=== PATIENT | female | born 1955 | race Hispanic/Latino ===

== ENCOUNTER 2018-09-26 18:06 | Emergency (ER) | payer OTHER | END 2018-09-26 20:24 | disposition home or self-care (01) | LOC: EDH 18:06 | DX: R60.0 Localized edema (principal); I10 Essential (primary) hypertension; E78.5 Hyperlipidemia, unspecified; E07.9 Disorder of thyroid, unspecified; Z90.710 Acquired absence of both cervix and uterus | CPT/HCPCS: 93971 ==

== ENCOUNTER → 2018-09-26 | Outpatient (CLI) | payer MEDICARE, OTHER ==
[~2018-09-26] MED LIST: IOHEXOL-350 75 ML VIAL IV ONE
== END | disposition home or self-care (01) ==
LOC: RAH 07:41
PROVIDERS: ATTEND Surgery
DX: K42.9 Umbilical hernia without obstruction or gangrene (principal); K43.2 Incisional hernia without obstruction or gangrene; K40.90 Unilateral inguinal hernia, without obstruction or gangrene, not specified as recurrent; M47.817 Spondylosis without myelopathy or radiculopathy, lumbosacral region; Z90.710 Acquired absence of both cervix and uterus
CPT/HCPCS: 74177; Q9967 ×2

== ENCOUNTER → 2022-05-18 | Outpatient (CLI) | payer OTHER, MEDICARE ==
[2022-05-18 16:44] LABS: ALBUMIN 3.7 g/dL (3.5-5.0); POTASSIUM 4.1 mmol/L (3.5-5.1); TOTAL PROTEIN, SERUM 7.9 g/dL (6.0-8.3)
== END | disposition home or self-care (01) ==
LOC: LAB 08:15
PROVIDERS: ATTEND Internal Medicine Cardiovascular Disease
DX: R01.1 Cardiac murmur, unspecified (principal)
CPT/HCPCS: 36415; 80053

== ENCOUNTER → 2022-05-26 | Outpatient (CLI) | payer OTHER, MEDICARE ==
[~2022-05-26] MED LIST changes: +IOHEXOL 350 MG/ML 100ML INFUS..BTL IV ONE; -IOHEXOL-350 75 ML VIAL IV ONE
== END | disposition home or self-care (01) ==
LOC: RAH 11:23
PROVIDERS: ATTEND Internal Medicine Cardiovascular Disease
DX: Q25.3 Supravalvular aortic stenosis (principal); I35.0 Nonrheumatic aortic (valve) stenosis
CPT/HCPCS: 71275; Q9967

== ENCOUNTER → 2022-12-31 | Outpatient (CLI) | payer OTHER, MEDICARE | END | disposition home or self-care (01) | LOC: SHCH 13:27 | PROVIDERS: ATTEND Internal Medicine Cardiovascular Disease | DX: I87.2 Venous insufficiency (chronic) (peripheral) (principal) | CPT/HCPCS: 93970 ==

== ENCOUNTER → 2024-02-14 | Outpatient (CLI) | payer MEDICARE | END | disposition home or self-care (01) | LOC: SHCH 12:37 | PROVIDERS: ATTEND Internal Medicine Cardiovascular Disease | DX: I08.0 Rheumatic disorders of both mitral and aortic valves (principal); R01.1 Cardiac murmur, unspecified | CPT/HCPCS: 93306 ==

== ENCOUNTER 2024-06-02 18:05 | Emergency (ER) | payer MEDICARE ==
[~2024-06-02] VITALS: Ht 154.9 cm; Wt 79.4 kg
[2024-06-02] MEDS ORDERED: ACET-2079 PO (18:54)
--- NOTE | 2024-06-02 18:57 | ERN ---
ED Note History of Present Illness Stated Complaint: LEFT HIP PAIN Chief Complaint: Hip Pain/Injury Time Seen by MD: 18:33 Dictation: PATIENT IS A 69-YEAR-OLD FEMALE HERE WITH LEFT LATERAL LUMBOSACRAL TENDERNESS AND PAIN RADIATING DOWN THE POSTERIOR LEFT LEG ONSET TWO DAYS PRIOR TO ARRIVAL. NO FEVER NO CHILLS NO NAUSEA VOMITING NO CHANGE IN URINATION. PATIENT'S DAUGHTER STATES THEY WERE SEEN AT [facility] YESTERDAY AND HAD PLAIN FILM X-RAYS DONE, HOWEVER THE X-RAYS WERE INCONCLUSIVE AND THEY WERE TOLD TO GET AN MRI. THEY CAME TODAY TO [facility] HOPING TO HAVE AN MRI IN THE EMERGENCY ROOM. Allergies: Coded Allergies: No Known Drug Allergies (Unverified Allergy, Unknown, 09/26/18) Home Meds Active Scripts Acetaminophen with Codeine (Acetaminophen-Cod #3 Tablet) 300 Mg-30 Mg Tablet, 1 TAB PO Q4H PRN for MODERATE TO SEVERE, #12 TAB 0 Refills Prov:MARILIN WATTERS ENGLISH COMPOSITION TEACHER 06/02/24 Past Medical History Past Medical History: Hypertension Additional Past Medical Hx: THYROID PROBLEM Surgical History: None History: Not Applicable RN Note Reviewed/Agreed w/PFSH: Yes Review of System Dictation CONSTITUTIONAL: NEGATIVE EXCEPT FOR HPI HEAD/FACE: NEGATIVE EXCEPT FOR HPI EENT: NEGATIVE EXCEPT FOR HPI RESPIRATORY: NEGATIVE EXCEPT FOR HPI GASTROINTESTINAL/ABDOMINAL: NEGATIVE EXCEPT FOR HPI GENITOURINARY: NEGATIVE EXCEPT FOR HPI MUSCULOSKELETAL: NEGATIVE EXCEPT FOR HPI LEFT LATERAL LUMBOSACRAL TENDERNESS INTEGUMENTARY: NEGATIVE EXCEPT FOR HPI NEUROLOGICAL/PSYCH: NEGATIVE EXCEPT FOR HPI SCIATICA LEFT LEG HEMATOLOGIC/LYMPHATIC: NEGATIVE EXCEPT FOR HPI ALL SYSTEMS NEGATIVE, EXCEPT NOTED ABOVE. 13 POINT REVIEW OF SYSTEMS ASSESSED AND ALL NEGATIVE EXCEPT FOR ABOVE. Initial Vital Sign VS Vital Signs Date Time Temp Pulse Resp B/P (MAP) Pulse Ox O2 Delivery O2 Flow Rate FiO2 06/02/24 18:25 97.9 77 16 153/74 97 Room Air 06/02/24 21:37 0 21 Physical Exam Dictation VITAL SIGNS REVIEWED GENERAL APPEARANCE: ALERT, ORIENTED X 3, MODERATE ACUTE DISTRESS, WELL DEVELOPED, NOURISHED. HEAD AND FACE: NON-TRAUMATIC. EYES: PERRL, PINK CONJUNCTIVAS, EYELID NO TRAUMA, ANTERIOR CHAMBER WITH ARCUS SENILIS. EARS: PINNAS INTACT AND NO SIGNS OF TRAUMA OR ERYTHEMA EAR CANALS CLEAR AND NO DISCHARGE TM NO ERYTHEMA NOSE: NO DISCHARGE, NO BLEEDING. OROPHARYNX: MOUTH NORMAL, TONGUE PINK, PHARYNX CLEAR,NO ERYTHEMA, TONSILS NO EXUDATES, NO ABSCESSES NOTED, MUCOUS MEMBRANE MOIST NECK: SUPPLE, NON-TENDER, NO THYROMEGALY, NO MASSES, NO JVD, NO BRUITS BREAST:DEFERRED CHEST:NO TENDERNESS, NO CREPITUS, NO PARADOXICAL MOVEMENT, NO RETRACTIONS LUNGS:CLEAR, WELL-VENTILATED, SYMMETRIC, NO RALES, NO WHEEZING, NO RHONCHI, NO STRIDOR, GOOD BREATH SOUNDS BILATERALLY HEART: REGULAR RATE, REGULAR RHYTHM, NO MURMUR, NO GALLOPS VASCULAR: NO PERIPHERAL EDEMA, ABDOMEN: SOFT, POSITIVE BOWEL SOUNDS, NONDISTENDED, NO GUARDING, NONTENDER, NO REBOUND, NO MASSES NO HEPATOMEGALY, NO SPLENOMEGALY, NO PINEDO'S SIGN, NO HERNIAS. RECTAL: DEFERRED GENITAL: DEFERRED NEUROLOGICAL: NORMAL SPEECH, MOTOR FUNCTION INTACT, SENSORY FUNCTION INTACT MUSCULOSKELETAL: NECK NONTENDER, FULL RANGE OF MOTION, LEFT LATERAL LUMBOSACRAL TENDERNESS WITH PALPATION, FULL RANGE OF MOTION, POSITIVE STRAIGHT LEG RAISE LEFT LEG 10 DEGREE EXTREMITIES: NONTENDER, FULL RANGE OF MOTION SKIN: COLOR PINK, DRY, NO TURGOR, NO RASH, NO LACERATIONS, NO ABRASIONS, NO CONTUSIONS. LYMPHATIC: DEFERRED Results (Laboratory/Radiology) Labs Reviewed?: Yes ED Course ED Course Orders Procedure Category Date Status Time Acetaminophen With PHA 06/02/24 Complete Codeine (Tylenol-Code 19:00 Dexamethasone 4mg/Ml PHA 06/02/24 Complete 1ml Vial (Dexametha 19:00 Ketorolac PHA 06/02/24 Complete Tromethamine 30mg/Ml 19:00 Current Medications Medications (Trade) Dose Ordered Sig/Juvenal Route PRN Reason Start Time Stop Time Status Last Admin Dose Admin Acetaminophen/ Codeine Phosphate (TYLenol-coDEINE TAB) 1 tab ONCE ONCE PO 06/02/24 19:00 06/02/24 19:01 DC 06/02/24 21:28 Dexamethasone Sodium Phosphate (dexaMETHasone 4MG/ML 1ML VIAL) 4 mg ONCE ONCE IM 06/02/24 19:00 06/02/24 19:01 DC 06/02/24 21:28 Ketorolac Tromethamine (toRADol) 30 mg ONCE ONCE IVP 06/02/24 19:00 06/02/24 19:01 DC 06/02/24 21:28 Vital Signs Date Time Temp Pulse Resp B/P (MAP) Pulse Ox O2 Delivery O2 Flow Rate FiO2 06/02/24 21:37 98.1 75 16 150/70 98 Room Air* 0 21 06/02/24 18:25 97.9 77 16 153/74 97 Room Air EIGHTEEN 50 PATIENT AND DAUGHTER MADE AWARE THAT I AM UNABLE TO PERFORM AN MRI IN THE EMERGENCY ROOM. THEY HE HAD BEEN PRESCRIBED IBUPROFEN 800 BY [facility] I ASSURED THEM I COULD GIVE BETTER PAIN RELIEF HOWEVER THEY WOULD NEED TO SEE THEIR PRIMARY CARE DOCTOR TOMORROW FOR MRI Medical Decision Making MDM MEDICAL DISCHARGE MAKING BASED ON EMPIRIC TREATMENT FOR LEFT LUMBOSACRAL PAIN WITH SCIATICA PATIENT AND DAUGHTER MADE AWARE THAT THEY NEED TO SEE PATIENT'S PRIMARY CARE DOCTOR TOMORROW FOR RECOMMENDED MRI MDM: Differential diagnosis: Back pain, sciatica Risk of complication and/or morbidity or mortality of patient management: None Medications-Per medication reconciliation Need for hospitalization: Patient does not meet criteria for hospitalization. Need for emergency major/minor surgery: No There are no social concerns with this patient. Prescription drug management Prescriptions will include symptomatic care I independently interpreted the test that were performed, results were reviewed by me and considered findings on radiology if ordered. DX & DISP Disposition: Discharge Departure Impression: Primary Impression: Acute low back pain with left-sided sciatica Condition: Stable Scripts Acetaminophen with Codeine (Acetaminophen-Cod #3 Tablet) 300 Mg-30 Mg Tablet 1 TAB PO Q4H PRN for MODERATE TO SEVERE, #12 TAB 0 Refills Prov: MARILIN WATTERS ENGLISH COMPOSITION TEACHER 06/02/24 Additional Instructions: Follow-up with primary care provider in 1 to 2 days. Take medications as directed here in the emergency room. Okay to continue home medications unless otherwise discussed during your visit in the emergency room today. Return to your nearest emergency room if symptoms worsen or if there is no improvement. Call 911 if you need immediate assistance. Take Tylenol or Motrin [id number] as needed and if no contraindications are present. Increase oral hydration. A wound culture or urine culture was ordered here in the emergency room department please follow-up with primary care provider and advise them to get repeat ports from our facility. If you had any Rony wrap/splints that were applied here, please do not remove them until you see your primary care or specialty. Continue ibuprofen from [facility] for mild pain. Take Tylenol with codeine as needed for severe pain warm compresses three to 4 times a day to low back and see your primary care doctor in the next 1-2 days for recommended MRI. Referrals: TYSON GAMEZ MD (PCP) Time of Disposition: 18:53 I have reviewed the case, and I agree with, Diagnosis and Plan I performed the substantive portion of the visit. I have reviewed and personally made and approve the management plan that is documented in the notes by myself or the GILMAR. I acknowledge full responsibility for the patient's [facility] plan. MARILIN WATTERS NP Jun 02, 2024 18:57 TIAN MONTANEZ MD Jun 03, 2024 15:51
--- NOTE | 2024-06-02 20:28 | NUR ---
PT TO FT AT THIS TIME
[2024-06-02] MEDS: ketOROlac 30MG VIAL (30MG/ML) IVP ONE (21:28)
[2024-06-02] MEDS: acetaMINOPHEN WITH coDEINE 1 TAB TAB PO ONE (21:28)
[2024-06-02] MEDS: dexaMETHasone SOD PHOSPHATE 4 MG/ML 1ML VIAL IM ONE (21:28)
[2024-06-02 21:37] VITALS: BP 150/70; PULSE 75; RESP 16; TEMP 98.1; O2SAT 98
== END 2024-06-02 21:47 | disposition home or self-care (01) ==
LOC: EDH 18:05
DX: M54.42 Lumbago with sciatica, left side (principal); I10 Essential (primary) hypertension; Z79.899 Other long term (current) drug therapy
CPT/HCPCS: 99284; 96374; 96372; J1100; J1885

== ENCOUNTER → 2024-11-28 | Outpatient (CLI) | payer MEDICARE, MEDICAID ==
[~2024-11-28] MED LIST changes: +ACET-2079 PO; -IOHEXOL 350 MG/ML 100ML INFUS..BTL IV ONE; +IOHEXOL-350 75 ML VIAL IV ONE
--- NOTE | 2024-11-28 12:50 | HMCIMG ---
EXAM: CT Head With Intravenous Contrast. CLINICAL HISTORY: 69-year-old female with repeated falls. TECHNIQUE: Axial computed tomography images of the head/brain with intravenous contrast. Dose reduction technique was used including one or more of the following: automated exposure control, adjustment of mA and kV according to patient size, and/or iterative reconstruction. CONTRAST: Standard dose of IV contrast. COMPARISON: CT brain 03/10/2016. FINDINGS: BRAIN: No acute intraparenchymal hemorrhage. No CT evidence for acute territorial infarct. No midline shift or extra-axial collection. Atrophy and mild chronic ischemic changes, and with contrast negative for enhancing mass lesion, similar to prior CT brain 03/10/2016. VENTRICLES: No hydrocephalus. ORBITS: The orbits are unremarkable. SINUSES AND MASTOIDS: The paranasal sinuses and mastoid air cells are clear. SOFT TISSUES: No significant facial or scalp soft tissue swelling evident. No radiopaque foreign body is seen. BONES: No acute skull fracture. IMPRESSION: 1. No acute intracranial abnormality. 2. Atrophy and mild chronic ischemic changes, similar to prior CT brain 03/10/2016. /[place]
== END | disposition home or self-care (01) ==
LOC: RAH 11:03
PROVIDERS: ATTEND Family Medicine
DX: I67.82 Cerebral ischemia (principal); G31.9 Degenerative disease of nervous system, unspecified; R29.6 Repeated falls
CPT/HCPCS: 70470; Q9967

== ENCOUNTER 2025-01-16 12:42 | Emergency (ER) | payer MEDICARE, MEDICAID ==
[~2025-01-16] VITALS: Ht 154.9 cm; Wt 78.9 kg
[~2025-01-16 12:42] MED LIST changes: -IOHEXOL-350 75 ML VIAL IV ONE
[2025-01-16] MEDS ORDERED: CLIN-141 PO (14:04)
--- NOTE | 2025-01-16 14:05 | ERN ---
ED Note History of Present Illness Stated Complaint: INSECT STING Chief Complaint: Insect Bite Time Seen by MD: 13:19 Dictation: 69-year-old female presenting to the emergency department after insect bite to the right shoulder area causing redness since last night. No other symptoms no shortness a breath no nausea vomiting Allergies: Coded Allergies: No Known Drug Allergies (Unverified Allergy, Unknown, 09/26/18) Home Meds Active Scripts Acetaminophen with Codeine (Acetaminophen-Cod #3 Tablet) 300 Mg-30 Mg Tablet, 1 TAB PO Q4H PRN for MODERATE TO SEVERE, #12 TAB 0 Refills Prov:MARILIN WATTERS INTEGRITY SPECIALIST 06/02/24 Past Medical History Past Medical History: Hypertension Additional Past Medical Hx: THYROID PROBLEM Surgical History: None History: Not Applicable Review of System Dictation Constitutional: Negative for fever,chills, and weight loss Eyes: Negative for injury, pain,redness, and discharge ENT: Negative for injury,pain or swelling Cardiovascular: Negative for chest pain, palpitations, and edema Respiratory: Negative for shortness of breath, cough, and wheezing, Abdomen/GI: Negative for abdominal pain, nausea, vomiting, diarrhea, and constipation Back: Negative for injury and pain : Negative for injury, bleeding and discharge MS/Extremity: Negative for injury and deformity Skin: Per HPI Neuro: Negative for headache, weakness, numbness, tingling, and seizure Initial Vital Sign VS Vital Signs Date Time Temp Pulse Resp B/P (MAP) Pulse Ox O2 Delivery O2 Flow Rate FiO2 01/16/25 12:43 98.4 73 16 140/79 98 Room Air Physical Exam Dictation General: awake, alert, NAD Head/Face: Normocephalic, atraumatic Eyes: PERRL, EOMI, vision at baseline ENT: oral cavity clear, TMs clear, no signs of infection Neck: Trachea midline, supple, no nuchal rigidity Cardiovascular: RRR, normal S1/S2, No MRGs, no JVD Respiratory: CTAB, no respiratory distress, No rales or wheezes Abdomen: Soft, non-tender, non-distended, normal bowel sounds, no guarding or rebound. Skin: Warm, dry, normal turgor, erythema to right shoulder area superficial MS/Extremity: Pulses equal, no cyanosis, neurovascular intact, FROM Neuro: COAx4, GCS 15, strength 5/5, CN 2-12 intact, normal cerebellar exam, normal gait, Psych: Normal behavior, mood, and affect normal ED Course ED Course Orders Procedure Category Date Status Time Ceftriaxone 1g Vial PHA 01/16/25 Transmitted (Rocephine 1g Inj) 14:30 Diphenhydramine Hcl PHA 01/16/25 Transmitted (Benadryl Inj) 14:30 Vital Signs Date Time Temp Pulse Resp B/P (MAP) Pulse Ox O2 Delivery O2 Flow Rate FiO2 01/16/25 12:43 98.4 73 16 140/79 98 Room Air Medical Decision Making MDM MDM: Differential diagnosis: Rationale: Tests considered and ordered secondary to shared decision making include: Previous outside records reviewed: Old ER visits. Risk of complication and/or morbidity or mortality of patient management: None Medications-Per medication reconciliation Need for hospitalization: Patient does not meet criteria for hospitalization. Need for emergency major/minor surgery: No There are no social concerns with this patient. Prescription drug management Prescriptions will include symptomatic care Patient's prior external medical records from other ER visits were reviewed by me as indicated. Prior testing and results from previous visits were reviewed. Prior tests were taken into account with medical decision making and resource utilization, independent historian/historians were used to obtain complete medical history. I independently interpreted the test that were performed, results were reviewed by me and considered findings on radiology if ordered. Medical management and examination interpretation discussions were had by me with other qualified healthcare professionals as indicated for the patient's care. 69-year-old female with insect bite redness surrounding cellulitis superficial prescriptions given DX & DISP Disposition: Discharge Departure Impression: Primary Impression: Cellulitis of right shoulder Condition: Stable Scripts Clindamycin HCl (Clindamycin HCl) 300 Mg Capsule 1 CAP PO TID for 10 Days, #30 CAP 0 Refills Prov: TIAN MONTANEZ MD 01/16/25 Referrals: TYSON GAMEZ MD (PCP) TIAN MONTANEZ MD Jan 16, 2025 14:04
[2025-01-16 14:29] VITALS: BP 136/78; PULSE 72; RESP 16; TEMP 98.1; O2SAT 98
== END 2025-01-16 14:43 | disposition home or self-care (01) ==
LOC: EDH 12:42
DX: L03.113 Cellulitis of right upper limb (principal); I10 Essential (primary) hypertension; Z79.899 Other long term (current) drug therapy
CPT/HCPCS: 99284; 96372 ×2; J1200; J0696